=== PATIENT | male | born 1955 | race Caucasian/White ===

== ENCOUNTER 2025-04-14 00:14 | Day surgery (SDC) | payer MEDICARE, SELFPAY ==
[2025-03-25 15:18] VITALS: BMI 21.7
[2025-04-14 08:16] VITALS: BP 154/68; PULSE 54; RESP 16; TEMP 36.4; O2SAT 99; BMI 20.9
[2025-04-14] MEDS: LACTATED RINGERS 1,000 ML 150 ML IV CONT (08:28)
--- NOTE | 2025-04-14 09:02 | P.PNAN_ITS ---
Anes - Initial Pre Proc Eval Procedure: Operation Date: 04/14/25 10:00 Proposed Procedures p Screening Colonoscopy - Jey Andrade MD Date/Time: 04/14/25 09:02 Surgeon: Jey Andrade MD Pre Op Diagnosis: screening Patient Data Age: 70 Gender: M Height: 1.7 m Weight: 60.5 kg Last Vital Signs Temp 36.4 C L 04/14/25 08:16 Pulse 54 L 04/14/25 08:16 Resp 16 04/14/25 08:16 BP 154/68 H 04/14/25 08:16 Pulse Ox 99 04/14/25 08:16 O2 Del Method Room Air 04/14/25 08:16 Allergies Allergy/AdvReac Type Severity Reaction Status Date / Time No Known Allergies Allergy Verified 04/14/25 08:15 Home Medications ?Medication ?Instructions ?Recorded ?Confirmed ?Type lisinopril 40 mg tablet 40 mg PO DAILY 03/25/25 04/14/25 History tadalafil 20 mg tablet 20 mg PO DAILY PRN sexual activity 03/25/25 03/25/25 History tamsulosin 0.4 mg capsule 0.4 mg PO DAILY 03/25/25 03/25/25 History Patient hx anesthesia problems: none Family hx anesthesia problems: none Results Review: All pre-operative results and documents have been reviewed as part of the pre- operative evaluation. [facility] Past Medical History Medical History (Updated 04/14/25 @ 09:04 by Brett Morales MD) HTN (hypertension) Surgical History Surgical History (Updated 04/14/25 @ 09:04 by Brett Morales MD) S/P ACL repair History of shoulder surgery Social History Social History Alcohol intake: never Substance use: never Substance use type: does not use Living arrangements: with family Spiritual care concerns: No Anes - Eval Final PreProcedure Day of Procedure 04/14/25 09:02 Patient weight: normal Heart: regular rate and rhythm Lungs: clear to auscultation Airway: Mallampati scale class II Neurological: alert and oriented Last oral intake: >/= 8 hours ASA classification: II Emergent: no Anesthetic plan: proceed Anesthesia type and monitoring: general GIVS and standard monitoring Results Review: All pre-operative results and documents have been reviewed as part of the pre- operative evaluation. Informed Consent: The patient's anesthetic plan and its attendant risks and benefits were discussed with the patient/family/POA. Questions were solicited and answers provided to the satisfaction of the patient/family/POA.
--- NOTE | 2025-04-14 09:47 | PM.IMHP ---
H&P: HPI History of Present Illness Date/Time: 04/14/25 09:47 Chief Complaint: History of colon polyps Narrative: The patient has a history of colonic polyps, the last colonoscopy was Review of Systems Review of Systems: All systems reviewed & are unremarkable except as noted in HPI and below PMFSH Past Medical History Medical History (Updated 04/14/25 @ 09:48 by Jey Andrade MD) HTN (hypertension) Surgical History Surgical History (Updated 04/14/25 @ 09:04 by Brett Morales MD) S/P ACL repair History of shoulder surgery Social History Social History Alcohol intake: never Substance use: never Substance use type: does not use Living arrangements: with family Spiritual care concerns: No Meds Home Medications and Allergies Home Medications ?Medication ?Instructions ?Recorded ?Confirmed ?Type lisinopril 40 mg tablet 40 mg PO DAILY 03/25/25 04/14/25 History tadalafil 20 mg tablet 20 mg PO DAILY PRN sexual activity 03/25/25 03/25/25 History tamsulosin 0.4 mg capsule 0.4 mg PO DAILY 03/25/25 03/25/25 History Allergies Allergy/AdvReac Type Severity Reaction Status Date / Time No Known Allergies Allergy Verified 04/14/25 08:15 Vital Signs Vital Signs - 24 hr 04/14/25 08:16 Temperature 97.5 F L Pulse Rate 54 L Respiratory Rate 16 Blood Pressure 154/68 H Pulse Oximetry 99 Oxygen Delivery Room Air Exam Const: General: cooperative and healthy appearing Resp: Effort & Inspection: normal respiratory effort and able to speak in complete sentences Auscultation: clear to auscultation bilaterally Cardio: Rate: regular rate Rhythm: regular rhythm GI: Inspection: normal to inspection GI Palp: No No hepatosplenomegaly present Auscultation: normal bowel sounds Rectal Exam: deferred Skin: General skin exam: normal color Psych: Appearance: grossly normal Mental Status: mental status grossly normal Assessment and Plan Assessment and plan (1) History of colonic polyps: Code(s): Z86.0100 - Personal history of colon polyps, unspecified Status: Acute Assessment and Plan: The patient is deemed a good candidate for the procedure. Consent signed. Will proceed.
[2025-04-14] MEDS: SIMETHICONE ORAL SUSPENSION 20 MG/0.3 ML 30 ML BOTTLE 0.6 ML IRRIGATION (10:03)
[2025-04-14 10:30] VITALS: BP 114/63; PULSE 50; RESP 22; O2SAT 99
--- NOTE | 2025-04-14 10:30 | S_PTH ---
PATIENT: Carlos Chahal LOC: [facility] U#:[id number] AGE/SX: 70/M ROOM: RE04/14/[address]: Jey Andrade MD : [id number] BED: DIS: 04/14/2025 SPEC #: [id number] RECD: 04/14/25 14:14 STATUS: JUAN C RESheri #: [id number] LORIE: 04/14/25 10:[address]: Jey Andrade DEPT: [facility] Surgical RECD BY: Ruby Alegre ENTERED: 04/14/25 14:16 SP TYPE: Surgical OTHR DR: Gilmar OrellanaMD Tissues: A - Colon Polypectomy B - Colon Polypectomy C - Colon Polypectomy D - Colon Polypectomy E - Colon Polypectomy F - Colon Polypectomy Procedures: Hematoxylin and Eosin Stain Gross and Microscopic Level 4
[2025-04-14 10:40] VITALS: BP 142/82; PULSE 47; RESP 16; O2SAT 100
[2025-04-14 10:50] VITALS: BP 170/82; PULSE 46; RESP 20; O2SAT 98
== END 2025-04-14 11:17 | disposition home or self-care (01) ==
PROVIDERS: PCP Internal Medicine; Referring Provider Internal Medicine; Visit Provider Internal Medicine Gastroenterology
PROC: 0DJD8ZZ Inspection of Lower Intestinal Tract, Via Natural or Artificial Opening Endoscopic (ICD-10-PCS; CPT 45378; principal; 2025-04-14 10:00)
DX: Z12.11 Encounter for screening for malignant neoplasm of colon (principal); D12.2 Benign neoplasm of ascending colon; D12.3 Benign neoplasm of transverse colon; D12.5 Benign neoplasm of sigmoid colon; D12.8 Benign neoplasm of rectum; K63.5 Polyp of colon
CPT/HCPCS: 45385; 88305; J2704; J7120